=== PATIENT | male | born 2000 | race Caucasian/White ===

== ENCOUNTER 2022-04-05 23:05 | Emergency (ER) | payer MEDICAID ==
[~2022-04-05] VITALS: Ht 180.3 cm; Wt 102.0 kg
[2022-04-05] MEDS ORDERED: CHLORHEXIDINE GLUCONATE 0.12% ORAL MOUTHWASH SSP SCH (23:45)
[2022-04-05] MEDS ORDERED: LIDOCAINE HCL/PF 1% 10 MG/ML 5ML VIAL INFIL ONE (23:45)
[2022-04-05] MEDS ORDERED: BACITRACIN ZINC OINT UDPKT TOP ONE (23:45)
[2022-04-05] MEDS ORDERED: IBUPROFEN 800MG TABLET PO ONE (23:45)
[2022-04-06 00:12] VITALS: BP 124/86
[2022-04-06] MEDS ORDERED: IBUP-2029 MT (00:16)
[2022-04-06] MEDS ORDERED: BO1 TP (00:16)
[2022-04-06] MEDS ORDERED: CHLO473M2 MT (00:18)
== END 2022-04-06 00:52 | disposition home or self-care (01) ==
LOC: ER 23:53
DX: S01.511A Laceration without foreign body of lip, initial encounter (principal); S01.501A Unspecified open wound of lip, initial encounter; Y28.9XXA Contact with unspecified sharp object, undetermined intent, initial encounter; Y93.89 Activity, other specified; Y92.9 Unspecified place or not applicable
CPT/HCPCS: 12011; 99283; J3490